=== PATIENT | female | born 1950 | race Caucasian/White ===

== ENCOUNTER 2019-07-24 09:06 | Emergency (ER) | payer MEDICARE, BC ==
--- OUTSIDE RECORDS SUMMARY | 2019-07-24 09:12 | XMS REPORT | Continuity of Care Document ---
:1950 External Reference #:[id number] Author Name Marissa Willett MD Address [address] [place] [id number] Care Team Providers Name Role Phone Randee Obrien MD Care Team Information [employer] [phone] Problems Description No Information Available Social History Type Date Description Comments Sex Unknown Tobacco Use Start: Unknown Patient has never smoked Smoking Status Reviewed: 07/13/19 Patient has never smoked Allergies, Adverse Reactions, Alerts Active Allergies Reaction Severity Comments Date Compazine 07/13/2019 Medications Active Medications SIG Qnty Indications Ordering Provider Date Pantoprazole Sodium Take 1 Tablet By 90tabs Marissa 07/13/2019 40mg Mouth Every Day MD Tamie Tablets DR 30 To 60 Minutes Before Eating Wellbutrin XL 1 by mouth every Unknown 150mg day Tablets ER 24HR Prolia 60 mg every 6 Unknown 60mg/ml Soln months Prefill Syringe Immunizations Description No Information Available Vital Signs Date Vital Result Comment 07/13/2019 9:55am Height 67.5 inches 5'7.50" Weight 164.00 lb BP Systolic 99 mmHg BP Diastolic 77 mmHg Heart Rate 79 /min BMI (Body Mass Index) 25.3 kg/m2 04/02/2018 3:21pm Height 67.5 inches 5'7.50" Weight 149.00 lb BMI (Body Mass Index) 23.0 kg/m2 Results Description No Information Available Procedures Description No Information Available Medical Devices Description No Information Available Encounters Description No Information Available Assessments Date Code Description Provider 07/13/2019 R13.10 Dysphagia, unspecified Marissa Willett MD 07/13/2019 R14.0 Abdominal distension (gaseous) Marissa Willett MD 07/13/2019 R14.3 Flatulence Marissa Willett MD Plan of Treatment Future Appointment(s):07/19/2019 1:30 pm - Marissa Willett MD at [facility]07/13/2019 - Marissa Willett, MDR13.10 Dysphagia, [id number] Abdominal distension (gaseous)R14.3 Flatulence Functional Status Description No Information Available Mental Status Description No Information Available Referrals Description No Information Available
[2019-07-24 09:18] VITALS: BP 110/73
--- NOTE | 2019-07-24 09:37 | UC ---
Throat Pain/Nasal Tej HPI - HPI Summary HPI Summary: 4 day history nasal congestion, is using OTC cold and sinus meds, yesterday has L ear pain and now R ear painful and facial pressure causing pain - History of Current Complaint Chief Complaint: UCRespiratory Stated Complaint: SINUS ISSUES Time Seen by Provider: 07/24/19 09:15 Hx Obtained From: Patient Hx Last Menstrual Period: "Years." Onset/Duration: Gradual Onset Severity: Moderate Pain Intensity: 4 Cough: None Associated Signs & Symptoms: Positive: Sinus Discomfort, Nasal Discharge, Fever - Allergies/Home Medications Allergies/Adverse Reactions: Allergies Allergy/AdvReac Type Severity Reaction Status Date / Time prochlorperazine Allergy Intermediate vomitting Verified 07/24/19 09:18 [From Compazine] PMH/Surg Hx/FS Hx/Imm Hx Previously Healthy: Yes GI/ History: Gastroesophageal Reflux Psychological History: Depression - Surgical History Surgical History: Yes Surgery Procedure, Year, and Place: 1970 PYLONIDAL CYST [facility];. 1999 LEFT KNEE [facility];. 2004 & 2005 LEFT ANKLE FX REPAIR [facility];. 10/2014 RIGHT WRIST [facility] , [place];. 06/2015 GALLBLADDER;. BR[place]OSCOPY BI[place]SY [place]; - Family History Known Family History: Positive: None - Social History Occupation: Retired Lives: With Family Alcohol Use: Occasionally Alcohol Amount: FEW DRINKS / MONTH Substance Use Type: None Smoking Status (MU): Former Smoker Amount Used/How Often: LESS THEN 1PPD 8 YR Have You Smoked in the Last Year: No When Did the Patient Quit Smoking/Using Tobacco: 1978 - Immunization History Most Recent Influenza Vaccination: 2014 Review of Systems All Other Systems Reviewed And Are Negative: Yes Constitutional: Positive: Fever, Fatigue Skin: Positive: Negative Eyes: Positive: Eye Redness. Negative: Drainage ENT: Positive: Ear Ache, Nasal Discharge, Sinus Congestion, Sinus Pain/ Tenderness Respiratory: Positive: Negative Cardiovascular: Positive: Negative Gastrointestinal: Positive: Negative Neurological: Positive: Negative Psychological: Positive: Negative Is Patient Immunocompromised?: No Physical Exam Triage Information Reviewed: Yes Appearance: Well-Appearing, No Pain Distress, Well-Nourished Vital Signs: Initial Vital Signs Temp 99.2 F 07/24/19 09:13 Pulse 65 07/24/19 09:13 Resp 16 07/24/19 09:13 BP 110/73 07/24/19 09:13 Pulse Ox 95 07/24/19 09:13 Vital Signs Reviewed: Yes Eyes: Positive: Conjunctiva Inflamed. Negative: Discharge ENT: Positive: Pharynx normal, Nasal congestion, Nasal drainage, TM dull - serous effusion R, Sinus tenderness Neck exam: Normal Respiratory Exam: Normal Respiratory: Positive: Lungs clear Cardiovascular Exam: Normal Cardiovascular: Positive: RRR Neurological Exam: Normal Psychological Exam: Normal Skin Exam: Normal Throat Pain/Nasal Course/Dx - Differential Dx/Diagnosis Differential Diagnosis/HQI/PQRI: Influenza, Otitis Media, Sinusitis, URI Provider Diagnosis: Sinusitis, Serous otitis media Discharge ED - Sign-Out/Discharge Documenting (check all that apply): Patient Departure All imaging exams completed and their final reports reviewed: No Studies - Discharge Plan Condition: Good Disposition: HOME Prescriptions: Cefdinir cap* [Cefdinir 300 MG cap (NF)] 300 mg PO BID #20 cap Patient Education Materials: Sinusitis (ED), Serous Otitis Media (ED) Referrals: Randee Obrien MD [Primary Care Provider] - 2 Days (if no better) Additional Instructions: drink plenty of fluids and rest start antibiotic and take as prescribed you can still use your over the counter cold and sinus relief medications - Billing Disposition and Condition Condition: GOOD Disposition: Home
== END 2019-07-24 09:47 | disposition home or self-care (01) ==
LOC: UCEAST 09:06
DX: J32.9 Chronic sinusitis, unspecified (principal); H65.93 Unspecified nonsuppurative otitis media, bilateral; Z87.891 Personal history of nicotine dependence; Z88.8 Allergy status to other drugs, medicaments and biological substances
CPT/HCPCS: 99212; G0463